=== PATIENT | female | born 1990 | race Caucasian/White ===

== ENCOUNTER 2018-08-26 08:51 | Emergency (ER) | payer MEDICAID ==
[2018-08-26 09:00] VITALS: BP 133/81; PULSE 82; RESP 18; TEMP 98.2; O2SAT 96
--- NOTE | 2018-08-26 12:58 | C.PDOC ---
History Of Present Illness 28 year old female comes in to ED complaining of a cyst under her left axilla that has been persistent there for some time, but pain has increased for the last 2 days. Patient denies any drainage, fever, chills, or other symptoms. Chief Complaint (Nursing): Abnormal Skin Integrity History Per: Patient History/Exam Limitations: no limitations Onset/Duration Of Symptoms: Days Current Symptoms Are (Timing): Still Present Past Medical History Reviewed: Historical Data, Nursing Documentation, Vital Signs Vital Signs: Last Vital Signs Temp 98.2 F 08/26/18 08:53 Pulse 82 08/26/18 08:53 Resp 18 08/26/18 08:53 BP 133/81 08/26/18 08:53 Pulse Ox 96 08/26/18 08:53 - [facility] Procedures OTHER SKIN & SUBQ I D (09/22/13) Family History: States: No Known Family Hx - Social History Hx Tobacco Use: No Hx Alcohol Use: No Hx Substance Use: No - Immunization History Hx Tetanus Toxoid Vaccination: Yes Hx Influenza Vaccination: Yes Hx Pneumococcal Vaccination: Yes Review Of Systems Except As Marked, All Systems Reviewed And Found Negative. Constitutional: Negative for: Fever, Chills Cardiovascular: Negative for: Chest Pain Respiratory: Negative for: Shortness of Breath Gastrointestinal: Negative for: Vomiting, Abdominal Pain, Diarrhea Skin: Positive for: Other (Cyst under left axilla) Physical Exam - Physical Exam Appears: Non-toxic, No Acute Distress Skin: Warm, Diaphoretic, Other (Indurated cyst under left axilla, positive tenderness on palpation) Head: Atraumatic, Normacephalic Eye(s): bilateral: Normal Inspection Oral Mucosa: Moist Neck: Supple Cardiovascular: Rhythm Regular, No Murmur Respiratory: Normal Breath Sounds, No Rales, No Rhonchi, No Wheezing Extremity: Bilateral: Atraumatic, Normal ROM Neurological/Psych: Oriented x3, Normal Speech ED Course And Treatment O2 Sat by Pulse Oximetry: 96 (RA) Pulse Ox Interpretation: Normal Medical Decision Making Medical Decision Making: Plan: --Ibuprofen 600 mg PO Disposition - Disposition Referrals: Obdulio Pickering, [Non-Staff] - Disposition: HOME/ ROUTINE Disposition Time: 10:10 Condition: GOOD Additional Instructions: SOFIA HODGE, thank you for letting us take care of you today. The emergency medical care you received today was directed at your acute symptoms. If you were prescribed any medication, please fill it and take as directed. It may take several days for your symptoms to resolve. Return to the Emergency Department if your symptoms worsen, do not improve, or if you have any other problems. Please contact your doctor or call one of the physicians/clinics you have been referred to that are listed on the Patient Visit Information form that is included in your discharge packet. Bring any paperwork you were given at discharge with you along with any medications you are taking to your follow up visit. Our treatment cannot replace ongoing medical care by a primary care provider outside of the emergency department. Thank you for allowing the [facility] team to be part of your care today. Apply warm packs to the area as many times during the day as you can. This will soften the abscess. Follow up with the emergency room or your clinic at the end of the week for re- evaluation and further management. Prescriptions: Cephalexin [cephalexin] 500 mg PO TID #15 cap Ibuprofen [Motrin] 600 mg PO Q6 PRN #20 tab PRN Reason: Pain, Moderate (4-7) Instructions: Skin Abscess Forms: [employer] [facility] (Zimbabwean), Work Excuse - Clinical Impression Clinical Impression: Abscess - Scribe Statement The provider has reviewed the documentation as recorded by the Poornima Moctezuma Provider Attestation: All medical record entries made by the Poornima were at my direction and personally dictated by me. I have reviewed the chart and agree that the record accurately reflects my personal performance of the history, physical exam, medical decision making, and the department course for this patient. I have also personally directed, reviewed, and agree with the discharge instructions and disposition.
== END 2018-08-26 09:47 | disposition home or self-care (01) ==
LOC: C.ER 08:51
DX: L02.412 Cutaneous abscess of left axilla (principal)

== ENCOUNTER 2018-08-29 19:45 | Emergency (ER) | payer MEDICAID ==
[2018-08-29 20:01] VITALS: BP 136/91; PULSE 100; RESP 20; TEMP 97.4; O2SAT 98
[2018-08-29] MEDS ORDERED: Lidocaine Hydrochloride 5 ML INJ ONE (20:20)
--- NOTE | 2018-08-29 20:34 | C.PDOC ---
History Of Present Illness 28 y/o female presents to the ER complaining of left axilla abscess which has been present for the past 4 days. Patient states that she was evaluated 3 days ago in [place] [facility]. At the time, she was told that it was not ready for drainage yet and she was discharged with abx. Patient reports that she noticed that the abscess became larger and there was more fluctuance. Denies having fever and chills. Time Seen by Provider: 08/29/18 19:56 Chief Complaint (Nursing): Upper Extremity Problem/Injury History Per: Patient History/Exam Limitations: no limitations Onset/Duration Of Symptoms: Days Current Symptoms Are (Timing): Still Present Severity: Moderate Past Medical History Reviewed: Historical Data, Nursing Documentation, Vital Signs Vital Signs: Last Vital Signs Temp 97.4 F L 08/29/18 19:58 Pulse 100 H 08/29/18 19:58 Resp 20 08/29/18 19:58 BP 136/91 H 08/29/18 19:58 Pulse Ox 98 08/29/18 19:58 - Medical History PMH: No Chronic Diseases Other Surgeries: Hx of surgeries - [facility] Procedures OTHER SKIN & SUBQ I D (09/22/13) Family History: States: No Known Family Hx - Social History Hx Tobacco Use: No Hx Alcohol Use: No Hx Substance Use: No - Immunization History Hx Tetanus Toxoid Vaccination: No Hx Influenza Vaccination: No Hx Pneumococcal Vaccination: No Review Of Systems Constitutional: Negative for: Fever, Chills, Weakness Eyes: Negative for: Redness Cardiovascular: Negative for: Chest Pain Respiratory: Negative for: Shortness of Breath Gastrointestinal: Negative for: Nausea, Vomiting, Diarrhea Genitourinary: Negative for: Dysuria, Hematuria Musculoskeletal: Negative for: Back Pain Skin: Positive for: Other (left axilla abscess). Negative for: Rash Neurological: Negative for: Weakness, Numbness, Dizziness Physical Exam - Physical Exam Appears: Non-toxic, No Acute Distress Skin: Normal Color, Warm, Dry, Other ( 6 x 5 cm area of fluctuance to left axilla) Head: Atraumatic, Normacephalic Eye(s): bilateral: Normal Inspection Neurological/Psych: Oriented x3, Normal Speech ED Course And Treatment O2 Sat by Pulse Oximetry: 98 (RA) Pulse Ox Interpretation: Normal - Incision & Drainage Of Abscess Anesthesia: Lidocaine 1% (tolerated procedure well) Prep Used: Sterile Water, Betadine Procedure: Incised W/Scalpel Blade#: (11), Drained Pus, Irrigated Cavity W/Saline, Probed To Break Up Loculations, Packed W/Gauze, Cultures Obtained And Sent To Lab Disposition Counseled Patient/Family Regarding: Diagnosis, Need For Followup - Disposition Disposition: HOME/ ROUTINE Disposition Time: 20:34 Condition: STABLE Instructions: Abscess Incision and Drainage (DC) Forms: [employer] [facility] (Swazi), General Discharge Instructions - Clinical Impression Clinical Impression: Abscess - 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 - Scribe Statement The provider has reviewed the documentation as recorded by the Poornima Downing Provider Attestation All medical record entries made by the Maria De Jesusibalexander were at my direction and personally dictated by me. I have reviewed the chart and agree that the record accurately reflects my personal performance of the history, physical exam, medical decision making, and the department course for this patient. I have also personally directed, reviewed, and agree with the discharge instructions and disposition.
== END 2018-08-29 20:53 | disposition home or self-care (01) ==
LOC: C.ER 19:45
DX: L02.412 Cutaneous abscess of left axilla (principal)

== ENCOUNTER 2018-08-31 16:26 | Emergency (ER) | payer MEDICAID ==
[2018-08-31 16:40] VITALS: BMI 36.0
[2018-08-31 16:46] VITALS: BP 150/86; PULSE 80; RESP 18; TEMP 98; O2SAT 99
--- NOTE | 2018-08-31 16:55 | C.PDOC ---
History Of Present Illness 28 y/o female pt presents to the ER for wound check. Pt had a I&D procedure yesterday on his left axilla abscess. Pt has no associated sx or complaints at this time. Time Seen by Provider: 08/31/18 16:28 Chief Complaint (Nursing): Wound Check History Per: Patient History/Exam Limitations: no limitations Onset/Duration Of Symptoms: Days Ago Current Symptoms Are (Timing): Still Present Past Medical History Reviewed: Historical Data, Nursing Documentation, Vital Signs Vital Signs: Last Vital Signs Temp 98.0 F 08/31/18 16:44 Pulse 80 08/31/18 16:44 Resp 18 08/31/18 16:44 BP 150/86 08/31/18 16:44 Pulse Ox 99 08/31/18 16:44 - [facility] Procedures OTHER SKIN & SUBQ I D (09/22/13) Family History: States: No Known Family Hx - Social History Hx Tobacco Use: No Hx Alcohol Use: No Hx Substance Use: No - Immunization History Hx Tetanus Toxoid Vaccination: No Hx Influenza Vaccination: No Hx Pneumococcal Vaccination: No Review Of Systems Constitutional: Negative for: Fever, Chills Respiratory: Negative for: Cough Gastrointestinal: Negative for: Nausea, Vomiting, Diarrhea Genitourinary: Negative for: Dysuria, Hematuria Musculoskeletal: Negative for: Back Pain Skin: Negative for: Rash Physical Exam - Physical Exam Appears: Well, Non-toxic, No Acute Distress Skin: Normal Color, Warm, No Rash, Other (left axilla: wound is well appearing, minimal oozing, no pus. Area appears less inflammed. ) Head: Atraumatic, Normacephalic Eye(s): bilateral: Normal Inspection (no scleral icterus ) Ear(s): Bilateral: Normal (no drainage ) Oral Mucosa: Moist Chest: Symmetrical Extremity: Normal ROM Extremity: Bilateral: Atraumatic Pulses: Left Radial: Normal (2+), Right Radial: Normal (2+) Neurological/Psych: Oriented x3, Other (cranial dylan grossly intact ) ED Course And Treatment O2 Sat by Pulse Oximetry: 99 (RA) Pulse Ox Interpretation: Normal Medical Decision Making Medical Decision Making: wound appears to be healing, no active bleeding or pus discharge. 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 - Scribe Statement The provider has reviewed the documentation as recorded by the Scribe Rachel Franco All medical record entries made by the Scribe were at my direction and perso parker dictated by me. I have reviewed the chart and agree that the record accurately reflects my personal performance of the history, physical exam, medical decision making, and the department course for this patient. I have also personally directed, reviewed, and agree with the discharge instructions and disposition.
== END 2018-08-31 16:57 | disposition home or self-care (01) ==
LOC: C.ER 16:26
DX: Z48.00 Encounter for change or removal of nonsurgical wound dressing (principal); L02.412 Cutaneous abscess of left axilla